=== PATIENT | male | born 1955 ===

== ENCOUNTER 2023-11-03 16:51 | Outpatient (CLI) | payer MEDICAID, MEDICARE | END 2023-11-03 23:59 | disposition short-term general hospital (02) | LOC: EMS 16:51 | DX: R07.89 Other chest pain (principal); M54.9 Dorsalgia, unspecified; R06.09 Other forms of dyspnea; I45.10 Unspecified right bundle-branch block | CPT/HCPCS: A0425; A0427; A0999 ==